=== PATIENT | male | born 1980 | race Caucasian/White ===

== ENCOUNTER 2024-03-02 10:48 | Emergency (ER) | payer OTHER, SELFPAY ==
[2024-03-02 10:55] VITALS: BP 132/83
[2024-03-02 11:42] VITALS: BP 149/96
[2024-03-02] MEDS: NSS 1000 IV (11:47)
[2024-03-02] MEDS: ZOFRAN 4 MG IV (11:48)
[2024-03-02] MEDS: DILAUDID 1 MG IV (11:49)
[2024-03-02 11:58] LABS: % Basophils 0.2 % (0-2); % Eosinophils 0.1 % (0-6); % Immature Granulocytes 0.2 % (0-0.5); % Lymphocytes 5.5 % (20.5-51.1); % Monocytes 4.7 % (1.7-9.3); % Neutrophils 89.3 % (42.2-75.2); Absolute Lymphocytes 0.5 10^3/uL (1.2-3.4); Absolute Monocytes 0.4 10^3/uL (0.1-0.6); Absolute Neutrophils 7.8 10^3/uL (1.4-6.5); Hematocrit 42.6 % (39.0-52.0); Hemoglobin 15.3 g/dL (13.0-18.0); Mean Corp Hgb Conc. 35.9 g/dL (33.0-37.0); Mean Corpuscular Hgb 32.5 pg (27.0-31.0); Mean Corpuscular Volume 90.4 fL (80.0-94.0); Nucleated Red Blood Cells % 0 % (-); Platelet Count 159 10^3/uL (130-400); Red Blood Cell Count 4.71 10^6/uL (4.70-6.10); Red Cell Dist. Width 13.2 % (11.5-14.5); White Blood Cell Count 8.7 10^3/uL (4.8-10.8)
[2024-03-02 12:00] VITALS: BP 125/72
--- NOTE | 2024-03-02 12:00 | ED.GENMED ---
History of Present Illness
General
Chief Complaint: Abdominal Pain
Source: patient
Exam Limitations: none
Time Seen by Provider: 03/02/24 11:21
Nursing documentation reviewed up to this point in time: agreed with
History of Present Illness
History of Present Illness:
43 y/o M
h/o emergency partial colectomy secondary to colon perforation tracy last year, colostomy with reversal
history of sepsis
here with severe R back pain wrapping around his R abdomen today when he woke up
n/v x 7times
no urinary symptoms, constipation
normal stool
no fever
feels weak
Past History
Past History
ED Past Medical History: Other (colon perforation, s/p colostomy with revearsal)
ED Past Surgical History: Bowel resection and Other (colostomy reversal)
Review of Systems
Review of Systems
Allergies reviewed?: Yes
All Other Systems: Not applicable
Phy Exam
Physical Exam
Physical Exam:
GENERAL: Alert, uncomfortable, pale, diaphoretic
Neck: supple
CARDIAC: Regular rate and rhythm .
LUNGS: Clear breath sounds bilaterally, no acute respiratory distress, no wheezes/rales/rhonchi
ABDOMEN: Soft, normal bowel sounds, nondistended, no abdominal tenderness; healed incisions, no guarding, no rebound, neg hogue's
back: no cva tenderness, no rash
NEUROLOGICAL: Alert and oriented, no focal neuro deficits
SKIN: Warm and dry, skin intact.
PSYCH: Normal and appropriate interaction.
Course
Orders/Labs/Results
Orders:
Orders
03/02/24 11:44
Complete Blood Count/With Diff Urgent
Comprehensive Metabolic Panel Urgent
Lactate Level [Lactic Acid] Urgent
Urinalysis Reflex To Culture Urgent
Date Specimen was Collected: 03/02/24
Time Specimen was Collected: 11:38
Urine Microscopic Reflex Cult Urgent
03/02/24 11:46
HYDROmorphone [Dilaudid] 1 mg .ROUTE .STK-MED ONE
03/02/24 11:47
0.9% Sodium Chloride 1000 ml [Nss] 1,000 ml IV BOLUS
Ondansetron Injectable [Zofran] 4 mg .ROUTE .STK-MED ONE
03/02/24 11:48
Ondansetron Injectable [Zofran] 4 mg IV NOW STA
03/02/24 11:49
HYDROmorphone [Dilaudid] 1 mg IV NOW STA
03/02/24 11:50
CT Abd/pel Without Iv Or Oral Urgent
Comment:
Reason For Exam: R flank pain, n/v
03/02/24 12:47
Ketorolac [Toradol] 15 mg IV NOW STA
Tamsulosin [Flomax] 0.4 mg PO NOW STA
03/02/24 13:44
Lactic Acid Urgent
03/02/24 15:09
Potassium Chloride Powder [Klor-Con] 20 meq PO NOW STA
Abnormal Lab Results
03/02/24
11:44
MCH 32.5 H pg
(27.0-31.0)
Absolute Neuts (auto) 7.8 H 10^3/uL
(1.4-6.5)
Absolute Lymphs (auto) 0.5 L 10^3/uL
(1.2-3.4)
Neutrophils % 89.3 H %
(42.2-75.2)
Lymphocytes % 5.5 L %
(20.5-51.1)
Glucose 166 H mg/dl
(70-99)
Lactic Acid 2.1 H mmol/L
(0.7-2.0)
Urine Ketones 3+ A
(Negative)
Ur Occult Blood Reflex 3+ A
(Negative)
Urine RBC 11-15 A /HPF
(0-2)
03/02/24 11:44
03/02/24 11:44
Vital Signs
Initial and Last Documented VS:
Initial Vital Signs
Temp Pulse Resp BP Pulse Ox
36.4 C 68 16 132/83 100
03/02/24 10:55 03/02/24 10:55 03/02/24 10:55 03/02/24 10:55 03/02/24 10:55
Last Documented Vital Signs
Temp Pulse Resp BP Pulse Ox
36.4 C 70 18 141/99 97
03/02/24 10:55 03/02/24 14:45 03/02/24 14:45 03/02/24 14:00 03/02/24 14:45
MDM/Problems Addressed
Differential Diagnosis Includes:
kidney stone, bowel perforation, appendicitis
MDM/Problems Addressed:
43 y/o M
h/o bowel surgery last year s/p partial colectomy and colostomy with revearsal
unknown cause for the perf
outside hospital
sudden R flank pain today
no h/o kdiney stone
pain radiates from back to abdomen but pt has no abdominal tenderness
dry heaving, pale
w/u shows normal wbc
lactate 2.1 --> cleared with IVF
ua neg for infection, blood only
cr normal
ct shows obstructive mid ureteral 6 mm stone mild hydro
painc ontrolled
toelrated po
d/c with flomax, nsaids, vicodine, zofran
f/u uro
*Critical Care Note
Total Time (30-74mins, 75-104mins- exclusive of procedures): Not Applicable
ED Attending Note
-
Portions of this chart may have been created with voice recognition software.� Occasional wrong word or��sound alike� substitutions may have occurred due to the inherent limitations of voice recognition software.
Discharge Plan
Departure
Patient Disposition: Home (Routine Discharge)
Date of Disposition: 03/02/24
Time of Disposition: 15:15
Patient with high blood pressure during this ER visit?: No
Covid-19: Not Applicable
Discharge Problem:
Kidney stone
Instructions: Kidney Stones (DC)
Prescriptions:
New
oxycodone 5 mg tablet
5 mg PO Q8H PRN (Reason: Pain) Qty: 12 0RF
ibuprofen 600 mg tablet
600 mg PO Q8H PRN (Reason: Pain) Qty: 20 0RF
ondansetron 4 mg tablet,disintegrating
4 mg PO Q8H PRN (Reason: nausea and vomiting) 2 Days Qty: 6 0RF
tamsulosin [Flomax] 0.4 mg capsule
0.4 mg PO DAILY Qty: 10 0RF
No Action
Theragen Tablet
1 tab PO DAILY
acetaminophen 500 mg Tablet
1,000 mg PO DAILYPRN PRN (Reason: mild pain)
Referrals:
NONE,* [Family Provider] -
Lewis Yabrra MD [Active] - Follow up in 2-3 days (CALL FOR AN APPOINTMENT; TELL THEM YOU WERE IN THE ER FOR A NEW KIDNEY STONE 6 MM)
Activity Restrictions/Additional Instructions:
YOUR KIDNEY STONE IS 6 MM AND IS MID URETER ON THE R SIDE
sSTAY HYDRATED
TAKE FLOMAX 0.4 MG ONCE A DAY UNTIL YOU PASS THE STONE
URINATE THROUGH THE STRAINER EACH TIME YOU PEE
TAKE TYLENOL 2 EXTRA STRENGTH TABS 3 TIMES A DAY FOR PAIN
YOU CAN ALSO TRY MOTRIN 600 MG EVERY 8 HOURS WITH FOOD 2-3 TIMES A DAY NEEDED
IF PAIN IS SEVERE YOU CAN TRY OXYCODONE 5 MG EVERY 6 HOURS NEEDED, THIS IS A NARCOTIC AND YOU CANNOT DRIVE OR DRINK ON THIS MEDICATION.
ZOFRAN EVERY 8 HOURS NEEDED FOR NAUSEA/VOMITING.
RETURN FOR: SEVERE PAIN, VOMITING, FEVER, NOT URINATING OR ANY CONCERNS.
OTHERWISE FOLLOW UP WITH YOUR UROLOGIST
Interventions
Interventions:
*Risk Screen - Suicide Last Done: 03/02/24 10:55
*General Assessment Last Done: 03/02/24 10:55
*Neglect/Abuse Screening Last Done: 03/02/24 11:34
*ED COVID-19 Vaccine History Last Done: 03/02/24 10:55
*Nursing Disposition Last Done: 03/02/24 15:31
KN-Qvxagb-Ecmthjbvey Assessment Last Done: 03/02/24 11:35
Discharge Date and Time
Discharge Date/Time: 03/02/24 15:32
Print Language: [place]
[2024-03-02 12:17] LABS: ALT (SGPT) 36 U/L (0-50); AST (SGOT) 42 U/L (17-59); Albumin 4.5 g/dl (3.5-5.0); Alkaline Phosphatase 81 U/L (38-126); Blood Urea Nitrogen 12 mg/dl (9-20); Calcium 9.3 mg/dl (8.4-10.2); Carbon Dioxide 24 mmol/L (22-30); Chloride 100 mmol/L (98-107); Glucose 166 mg/dl (70-99); Potassium 3.7 mmol/L (3.5-5.1); Sodium 135 mmol/L (135-145); Total Bilirubin 1.3 mg/dl (0.2-1.3); Total Protein 7.2 g/dl (6.3-8.2); eGFR > 60.00
[2024-03-02 12:18] LABS: Lactic Acid 2.1 mmol/L (0.7-2.0)
[2024-03-02 12:33] VITALS: BP 163/109
[2024-03-02] MEDS: FLOMAX 0.4 MG PO (12:53)
[2024-03-02] MEDS: TORADOL 15 MG IV (12:53)
[2024-03-02 13:00] VITALS: BP 149/98
[2024-03-02 14:00] VITALS: BP 141/99
[2024-03-02 14:07] LABS: Urine Albumin Trace (Neg - Trace); Urine Bilirubin Negative (Negative); Urine Character Clear (Clear); Urine Color Yellow; Urine Glucose Negative (Negative); Urine Ketone 3+ (Negative); Urine Leukocyte Negative (Negative); Urine Nitrite Negative (Negative); Urine Occult Blood 3+ (Negative); Urine Specific Gravity 1.015 (<1.030); Urine Urobilinogen Negative (Neg - 1+)
[2024-03-02 14:20] LABS: Urine Calcium Oxalate Crystals Present; Urine Squamous Cell 0-2 /LPF (Few)
[2024-03-02 14:24] LABS: Lactic Acid 1.3 mmol/L (0.7-2.0)
== END 2024-03-02 15:32 | disposition home or self-care (01) ==
LOC: EMR 10:48
PROVIDERS: Physician Assistant; EMERGENCY PHYSICIAN Emergency Medicine
DX: N13.2 Hydronephrosis with renal and ureteral calculous obstruction (principal); Z90.49 Acquired absence of other specified parts of digestive tract
CPT/HCPCS: 96374; 96375; 96361; 99284; 74176; 80053; 81003; 81015; 83605; 85025

== ENCOUNTER 2024-03-06 12:28 | Day surgery (SDC) | payer OTHER, SELFPAY ==
[2024-03-06] VITALS (14 sets, daily range): BP systolic 125–141; BP diastolic 76–100; BMI 24.4
--- NOTE | 2024-03-06 11:11 | ED.GENMED ---
History of Present Illness
General
Chief Complaint: Flank Pain
Source: patient
Exam Limitations: none
Time Seen by Provider: 03/06/24 10:59
History of Present Illness
History of Present Illness:
See MDM
Past History
Past History
ED Past Medical History: Other (colon perforation, s/p colostomy with revearsal)
ED Past Surgical History: Bowel resection and Other (colostomy reversal)
Phy Exam
Physical Exam
Physical Exam:
See MDM
Course
Vital Signs
Initial and Last Documented VS:
Initial Vital Signs
Temp Pulse Resp BP Pulse Ox
98.4 F 77 16 131/98 99
03/06/24 10:41 03/06/24 10:41 03/06/24 10:41 03/06/24 10:41 03/06/24 10:41
Last Documented Vital Signs
Temp Pulse Resp BP Pulse Ox
98.4 F 77 16 131/98 99
03/06/24 10:41 03/06/24 10:41 03/06/24 10:41 03/06/24 10:41 03/06/24 10:41
MDM/Problems Addressed
Differential Diagnosis Includes:
HPI and MDM Narrative:
43-year-old male presenting for evaluation of persistent right back pain. He was here in the emergency department a few days ago and diagnosed with a 6 mm mid ureteral stone. Patient was prescribed pain medicine and Flomax and he states nothing is
helping. Patient states he cannot handle the pain. Will discuss case with urology in regards to cystoscopy
Physical exam
General: Mildly uncomfortable
HEENT: protecting airway
Neck: appears supple
CV: No evidence of cyanosis
Resp: No accessory muscle use
Abd: Non-distended.
Back. Mild tenderness right flank without skin changes
Extremities: No deformities
Neuro: alert
Psych: Normal affect
Skin: Intact
Problems Addressed including Acute and Chronic Conditions affecting care:
1. Right ureteral stone
Acuity: acute
Prognosis: stable
Details: Given the uncontrolled pain, will discuss case with urology
Updates
11:17 AM Case discussed with urology and he will bring patient up to the OR for cystoscopy and stent placement
Differential Diagnosis (but not limited to): Obstructive kidney stone, renal colic
Testing considered: Repeat CT
Drug therapy (if applicable): OTC meds, please see d/c instruction regarding Rx drugs
Amount and/or Complexity of Data Reviewed
Clinical info obtained from: Patient
External data reviewed: CT performed few days ago shows 6 mm mid ureteral stone
Labs I independently reviewed (but not limited to): N/A
Radiology: N/A
Pulse Ox: not hypoxic
EKG independently reviewed: N/A
Breaker Machine Operator: N/A
Critical Care: N/A
Risk of Complication:
Social Determinants of health: Good social support
Discussed with other providers: Urologist
Escalation of Care includes Admit/Obs: Given persistent kidney stone pain, urology will place stent in OR
Occasional wrong word or 'sound a like' substitutions may have occurred due to the inherent limitations of voice recognition software. Read the chart carefully and recognize, using context, where substitutions have occurred.
*Critical Care Note
Total Time (30-74mins, 75-104mins- exclusive of procedures): Not Applicable
ED Attending Note
-
Portions of this chart may have been created with voice recognition software.� Occasional wrong word or��sound alike� substitutions may have occurred due to the inherent limitations of voice recognition software.
Discharge Plan
Departure
Patient Disposition: OR
Date of Disposition: 03/06/24
Time of Disposition: 11:18
Admit to: OR
Presentation/result/management discussed w/ accepting MD/DO: Urologist
Discharge Problem:
Kidney stone on right side
Prescriptions:
No Action
Theragen Tablet
1 tab PO DAILY
acetaminophen 500 mg Tablet
1,000 mg PO DAILYPRN PRN (Reason: mild pain)
oxycodone 5 mg tablet
5 mg PO Q8H PRN (Reason: Pain) Qty: 12 0RF
ibuprofen 600 mg tablet
600 mg PO Q8H PRN (Reason: Pain) Qty: 20 0RF
ondansetron 4 mg tablet,disintegrating
4 mg PO Q8H PRN (Reason: nausea and vomiting) 2 Days Qty: 6 0RF
tamsulosin [Flomax] 0.4 mg capsule
0.4 mg PO DAILY Qty: 10 0RF
Referrals:
UNKNOWN - PT DOES,NOT KNOW [Family Provider] -
Interventions
Interventions:
*Risk Screen - Suicide Last Done: 03/06/24 10:41
*General Assessment Last Done: 03/06/24 10:41
*Neglect/Abuse Screening Last Done: 03/06/24 10:41
*ED COVID-19 Vaccine History Last Done: 03/06/24 10:41
Discharge Date and Time
Print Language: ITALIAN
[2024-03-06] MEDS: MORPHINE SULFATE 4 MG IV (11:15)
[2024-03-06] MEDS: TORADOL 30 MG IV (11:15)
[2024-03-06] MEDS: NSS 1000 IV (11:37)
[2024-03-06] MEDS: ANCEF 10 IV (11:38)
--- NOTE | 2024-03-06 11:38 | W.PN.URO.CBU ---
Today's Communication / Plan
-
to op room
Assessment / Plan
-
rt midureteral stone cannot get relief pain
Diagnosis
-
Date of Service: March 06, 2024
-
Patient Diagnosis:rt mid ureteral stone intractable pain and hydro
Post Op Day:
Subjective
-
severe pain no fever
Objective
-
Vital Signs
Temp Pulse Resp BP Pulse Ox
98.4 F 77 16 131/98 99
03/06/24 10:41 03/06/24 10:41 03/06/24 10:41 03/06/24 10:41 03/06/24 10:41
Review of Systems
-
Abdomen/GI: Nausea
: Flank Pain
Physical Exam
-
General - well developed, well nourished, no acute distress
Chest - clear bilaterally
Abdomen - soft, non-tender, positive bowel sounds, no CVAT, no incisional pain or distention
Genitalia - normal
Rectal - normal
Skin - warm & dry with no rash
Neuro - AOx3, no motor deficits
Extremities - no clubbing, no cyanosis, no ed
Care Review
Data Reviewed
Discussed with: Other (emergenv=cy room )
CT Scan: Image Pers Reviewed
--- NOTE | 2024-03-06 11:41 | W.PN.URO.CBU ---
Today's Communication / Plan
-
to op room npo admin 2 g,s iv ancef
Assessment / Plan
-
rt midureteral stone cannot get relief pain
Diagnosis
-
Date of Service: March 06, 2024
-
Patient Diagnosis:
Post Op Day:
Patient Diagnosis:rt mid ureteral stone intractable pain and hydro
Post Op Day:
Objective
-
Vital Signs
Temp Pulse Resp BP Pulse Ox
98.4 F 77 16 131/98 99
03/06/24 10:41 03/06/24 10:41 03/06/24 10:41 03/06/24 10:41 03/06/24 10:41
Physical Exam
-
General - well developed, well nourished, no acute distress
Chest - clear bilaterally
Abdomen - soft, non-tender, positive bowel sounds, no CVAT, no incisional pain or distention
Genitalia - normal
Rectal - normal
Skin - warm & dry with no rash
Neuro - AOx3, no motor deficits
Extremities - no clubbing, no cyanosis, no edema
Incision - clean, dry
Dressing - clean, dry, intact
[2024-03-06] MEDS: DILAUDID 0.25 MG IV (13:41)
[2024-03-06] MEDS: LEVAQUIN 100 IV (13:42)
[2024-03-06] MEDS: Pyridium 200 MG PO (13:43)
--- NOTE | 2024-03-06 14:35 | PTCARENOTE ---
Pt arrived to 2S in bed. Full assessment completed. IV abx and IVF infusing per order. Pt educated on diet and to ring for assistance with ambulation, verbalized understanding. Bed locked and in the lowest position, safety maintained. Oriented to
room and call barclay.
[2024-03-06] MEDS: LR 1000 IV ×2 (14:45→23:47)
[2024-03-06] MEDS: MOTRIN 600 MG PO (15:25)
[2024-03-06] MEDS: PERCOCET 5/325 1 TABLET PO (20:39)
[2024-03-06] MEDS: FLOMAX 0.4 MG PO (21:56)
[2024-03-06] MEDS: MELATONIN 5 MG PO (23:47)
[2024-03-07 03:00] VITALS: BP 132/87
[2024-03-07 06:00] VITALS: BMI 25.3
[2024-03-07 07:16] VITALS: BP 137/91
[2024-03-07] MEDS: THERAGRAN 1 TABLET PO (07:38)
[2024-03-07] MEDS: TYLENOL 650 MG PO (07:38)
[2024-03-07] MEDS: LR 1000 IV (07:40)
--- NOTE | 2024-03-07 10:23 | CM ---
Met with pt at bedside
Pt reports he lives alone in an apartment; 26 steps to enter, FF set-up
Employed [employer], independent, drives
DME - none
SNF/HH - denies past hx
Has ride at discharge
PCP - recently changed PCP, unsure of name
Pharm - [facility]
Plan - anticipate home no needs when medically ready
[2024-03-07] MEDS: LEVAQUIN 100 IV (11:32)
[2024-03-07 11:45] VITALS: BP 127/86
[2024-03-08 15:47] LABS: Stone Analysis Mass 26 mg
== END 2024-03-07 13:22 | disposition home or self-care (01) ==
LOC: PACU 12:28
PROVIDERS: ATTENDING PHYSICIAN Specialist; EMERGENCY PHYSICIAN Student in an Organized Health Care Education/Training Program
DX: N20.2 Calculus of kidney with calculus of ureter (principal); R10.9 Unspecified abdominal pain
CPT/HCPCS: 52356; 74018; 76000; 82365; 96374; 96375; 99285; C1894; C2617

== ENCOUNTER 2024-10-22 17:23 | Emergency (ER) | payer OTHER, SELFPAY ==
[2024-10-22 17:27] VITALS: BP 138/106
[2024-10-22 17:43] LABS: Hematocrit 47.5 % (39.0-52.0); Hemoglobin 16.6 g/dL (13.0-18.0); Mean Corp Hgb Conc. 34.9 g/dL (33.0-37.0); Mean Corpuscular Volume 88.8 fL (80.0-94.0); Nucleated Red Blood Cells % 0 % (-); Platelet Count 278 10^3/uL (130-400); Red Cell Dist. Width 13.5 % (11.5-14.5)
[2024-10-22 17:57] LABS: ALT (SGPT) 27 U/L (0-50); AST (SGOT) 28 U/L (17-59); Albumin 5.2 g/dl (3.5-5.0); Alkaline Phosphatase 90 U/L (38-126); Blood Urea Nitrogen 10 mg/dl (9-20); Calcium 9.3 mg/dl (8.4-10.2); Carbon Dioxide 23 mmol/L (22-30); Chloride 104 mmol/L (98-107); Glucose 105 mg/dl (70-99); Lipase 68 U/L (23-300); Potassium 4.1 mmol/L (3.5-5.1); Sodium 137 mmol/L (135-145); Total Protein 8.2 g/dl (6.3-8.2); eGFR > 60.00
[2024-10-22 19:00] VITALS: BP 140/103
[2024-10-22 19:03] VITALS: BMI 22.4
--- NOTE | 2024-10-22 19:10 | ED.GENMED ---
History of Present Illness
General
Chief Complaint: Abdominal Pain
Source: patient
Exam Limitations: none
Time Seen by Provider: 10/22/24 18:59
History of Present Illness
History of Present Illness:
43-year-old male with a complicated surgical history of his large bowel over the last 18 months. Apparently had a large bowel rupture possibly secondary to diverticulitis. Had multiple colostomy's. He has had a reanastomosis and reversal of the
colostomy. However over the last year he has had ongoing lower abdominal pain. He states he gets this pain on essentially a daily basis and at times has nausea. Is been slightly worse the last few days. He is frustrated with the lack of
resolution to what is going on
Past History
Past History
ED Past Medical History: Other (colon perforation, s/p colostomy with reversal)
ED Past Surgical History: Bowel resection and Other (colostomy reversal)
Phy Exam
Physical Exam
Physical Exam:
GENERAL: Alert and oriented in no apparent distress
EYE: Orbits normal.
NECK: Supple
CARDIAC: Regular rate and rhythm without any obvious murmurs.
LUNGS: Clear breath sounds,normal
ABDOMEN: Soft, no significant distention. Bowel sounds present but decreased. Multiple lower abdominal scars well-healed. Mild diffuse lower abdominal tenderness however no rebound or guarding no mass or hernia
NEUROLOGICAL: Alert and oriented , grossly non-focal
SKIN: Warm and dry, no rash or lesion, no discoloration, skin intact.
MUSCULOSKELETAL: No edema,no deformity.Good color
PSYCH: Normal and appropriate interaction.
Course
Orders/Labs/Results
Orders:
Orders
10/22/24 17:36
Complete Blood Count/With Diff Urgent
Comprehensive Metabolic Panel Urgent
Lipase Urgent
10/22/24 19:08
IV Insert/Care/Rem.- Treatment PRN
0.9% Sodium Chloride 500 ml [Nss] 500 ml IV BOLUS
Iohexol [Omnipaque] See Protocol PO NOW STA
10/22/24 19:09
CT Abd/pel W Iv And Oral Contr Urgent
Comment:
Reason For Exam: lower abd pain. multilple surgeries
Ondansetron Injectable [Zofran] 4 mg IV NOW STA
10/22/24 19:12
Ketorolac [Toradol] 15 mg IV NOW STA
Abnormal Lab Results
10/22/24
17:36
Absolute Monos (auto) 0.8 H 10^3/uL
(0.1-0.6)
Monocytes % 10.1 H %
(1.7-9.3)
Glucose 105 H mg/dl
(70-99)
Total Bilirubin 2.0 H mg/dl
(0.2-1.3)
Albumin 5.2 H g/dl
(3.5-5.0)
10/22/24 17:36
10/22/24 17:36
Vital Signs
Initial and Last Documented VS:
Initial Vital Signs
Temp Pulse Resp BP Pulse Ox
98.3 F 87 16 138/106 98
10/22/24 17:27 10/22/24 17:27 10/22/24 17:27 10/22/24 17:27 10/22/24 17:27
Last Documented Vital Signs
Temp Pulse Resp BP Pulse Ox
98.3 F 66 19 129/90 98
10/22/24 17:27 10/22/24 22:37 10/22/24 22:37 10/22/24 22:37 10/22/24 22:42
MDM/Problems Addressed
Differential Diagnosis Includes:
Patient with a complicated surgical history. Clinically not a surgical abdomen. Labs are stable. However warrants CT scan to rule out more serious etiology or issues.
*Radiology
Radiology exam reviewed: radiology read reviewed (Postoperative changes. Incidental cholelithiasis)
*Pulse Oximetry
SaO2: 98
Oxygen Mode of Delivery: Room air
Patient hypoxic: no
*Critical Care Note
Total Time (30-74mins, 75-104mins- exclusive of procedures): Not Applicable
Data Reviewed
Review of Other/Old Records Reveals: Labs, Records and Testing
Update Note
Update Note:
Patient is remained stable and nontoxic. No acute radiologic or surgical findings found. Copy of report given to patient. Incidental gallstones. Symptom complex not consistent with biliary colic. Discharged to follow-up
ED Attending Note
-
Portions of this chart may have been created with voice recognition software.� Occasional wrong word or��sound alike� substitutions may have occurred due to the inherent limitations of voice recognition software.
Discharge Plan
Departure
Patient Disposition: Home (Routine Discharge)
Date of Disposition: 10/22/24
Time of Disposition: 23:12
Patient with high blood pressure during this ER visit?: Yes
Discharge Problem:
Recurring lower abdominal pain, Status post multiple recurring surgeries, Incidental gallstones
Instructions: Abdominal Pain, BLOOD PRESSURE
Prescriptions:
No Action
therapeutic multivitamin Tablet
1 tab PO DAILY
acetaminophen 500 mg Tablet
1,000 mg PO DAILYPRN PRN (Reason: mild pain)
tamsulosin [Flomax] 0.4 mg capsule
0.4 mg PO DAILY Qty: 10 0RF
ibuprofen 600 mg tablet
600 mg PO Q8HPRN PRN (Reason: mild Pain)
ondansetron 4 mg tablet,disintegrating
4 mg PO Q8HPRN PRN (Reason: nausea and vomiting)
oxycodone 5 mg tablet
5 mg PO Q8HPRN PRN (Reason: severe Pain)
levofloxacin 500 mg tablet
500 mg PO DAILY Qty: 5 0RF
Rx Instructions:
1 po qd stareting sat
Referrals:
Will Santo MD [Active, Surgical] - Next open appointment
UNKNOWN - PT DOES,NOT KNOW [Family Provider]
Activity Restrictions/Additional Instructions:
I gave you the name of another surgeon you could try for their opinion. Or you could call and follow-up with the surgeon that did the procedures
Close follow-up with your primary physician
Interventions
Interventions:
*Risk Screen - Suicide Last Done: 10/22/24 17:27
*General Assessment Last Done: 10/22/24 19:16
*Neglect/Abuse Screening Last Done: 10/22/24 19:48
*ED- Fall Risk Assessment Last Done: 10/22/24 19:16
*ED COVID-19 Vaccine History Last Done: 10/22/24 19:16
ZN-[id number]-Mcvkwpjatb Assessment Last Done: 10/22/24 19:48
Discharge Date and Time
Print Language: BOLIVIAN
[2024-10-22] MEDS: NSS 500 IV (19:26)
[2024-10-22] MEDS: TORADOL 15 MG IV (19:27)
[2024-10-22] MEDS: OMNIPAQUE 50 ML PO (19:27)
[2024-10-22] MEDS: ZOFRAN 4 MG IV (19:27)
[2024-10-22 20:00] VITALS: BP 128/93
[2024-10-22 21:00] VITALS: BP 118/90
[2024-10-22 22:37] VITALS: BP 129/90
== END 2024-10-22 23:15 | disposition home or self-care (01) ==
LOC: EMR 17:23
PROVIDERS: Emergency Medicine; EMERGENCY PHYSICIAN Emergency Medicine
DX: R10.30 Lower abdominal pain, unspecified (principal); K80.20 Calculus of gallbladder without cholecystitis without obstruction; Z93.3 Colostomy status
CPT/HCPCS: 99284; 96374; 96375; 96361; 74177; 80053; 83690; 85025; Q9967